=== PATIENT | male | born 1975 | race African-American/Black ===

== ENCOUNTER 2018-07-07 21:21 | Observation (INO) ==
[2018-07-07 22:29] LABS: INR 0.9; PT Patient Result 10.3 SECS; Partial Thromboplastin Time 29.3 SECS (0-40)
[2018-07-07 22:33] LABS: Basophils % 0.3 % (0.0-0.8); Eosinophils # 0.1 10*3/uL (0.0-0.87); Eosinophils % 1.7 % (0.00-10.9); Hematocrit 47.9 VOL% (42.0-52.0); Hemoglobin 15.3 GM/DL (14.0-18.0); Immature Granulocytes % 0.3 %; Immature Granulocytes Absolute 0.02 #; Lymphocytes # 3.6 10*3/uL (1.4-4.0); Lymphocytes % 48.6 % (21.2-54.2); Mean Corpuscular HGB Conc 31.9 GM/DL (32-36); Mean Corpuscular Hemoglobin 25 PG (27-34); Mean Corpuscular Volume 78.7 FL (87-102); Mean Platelet Volume 10.7 FL (9.6-12.0); Monocytes # 0.5 10*3/uL (0.11-0.8); Monocytes % 6.3 % (1.7-12.7); Neutrophils # 3.2 10*3/uL (1.4-7.4); Neutrophils % 42.8 % (38.7-73.9); Platelet Count 221 T/CUMM (130-400); Red Blood Count 6.09 MC/CUMM (3.8-5.5); Red Cell Distribution Width 14.4 % (9.3-17.3); White Blood Count 7.4 T/CUMM (4-12)
[2018-07-07 22:36] LABS: Alanine Aminotransferase 49 U/L (16-61); Albumin 3.6 G/DL (3.4-5.0); Alkaline Phosphatase 98 U/L (45-117); Aspartate Amino Transferase 30 U/L (0-37); Bilirubin,Total < 0.39 MG/DL (0.2-1.0); Blood Urea Nitrogen 14 MG/DL (7-18); Calcium 8.4 MG/DL (8.5-10.1); Glucose 117 MG/DL (74-106); Osmolality,Calculated 284.1 MOS/KG (273-304); Potassium 3.3 MMOL/L (3.5-5.1); Sodium 142 MMOL/L (136-145); Total Protein 7.1 G/DL (6.4-8.3)
[2018-07-07] MEDS ORDERED: ONDANSETRON 4 MG/2 ML VIAL IV STA (23:09)
[2018-07-07] MEDS ORDERED: ASPIRIN 325 MG TABLET PO STA (23:09)
[2018-07-07] MEDS ORDERED: MORPHINE 4 MG/1 ML VIAL IV STA (23:09)
[2018-07-07] MEDS ORDERED: NITROGLYCERIN 2% OINT 1 INCH/GM PACK TOP STA (23:09)
[2018-07-07] MEDS ORDERED: ONDANSETRON 4 MG/2 ML VIAL IV PRN (23:42)
[2018-07-07] MEDS ORDERED: MAGNESIUM SULF RIDER 2 GM in PREMIX 1 EACH IV PRN (23:42)
[2018-07-07] MEDS ORDERED: NICOTINE 21 MG/24 HR PATCH TRANSDERM PRN (23:42)
[2018-07-07] MEDS ORDERED: diphenhydrAMINE CAP 25 MG CAPSULE PO PRN (23:42)
[2018-07-07] MEDS ORDERED: ACETAMINOPHEN 325 MG TABLET PO PRN (23:42)
[2018-07-07] MEDS ORDERED: MAGNESIUM SULF RIDER 4 GM in PREMIX 1 EACH IV PRN (23:42)
[2018-07-08 00:13] LABS: Risk Ratio 6.34; Thyroid Stimulating Hormone 1.12 uIU/ml (0.358-3.74); VLDL CHOLESTEROL 87.4 MG/DL
[2018-07-08] MEDS: POTASSIUM CHLORIDE 20 MEQ TABLET PO PRN ×3 (01:26→08:44)
[2018-07-08 04:41] LABS: Apearance,Urine CLEAR (Clear); Bilirubin,Urine Negative (Negative); Blood, Urine Negative (Negative); Glucose,Urine (UA) Negative (Negative); Ketones,Urine Negative (Negative); Mucus,Urine Few /LPF (Occasional); Nitrite,Urine Negative (Negative); Protein,Urine Negative; RBC,Urine 2 /HPF (0-4); Squamous Epithelial Cell,Urine Occasional /HPF (0-10); Urine Color Yellow (Yellow); Urine Specific Gravity 1.027 (1.001-1.035); Urine Urobilinogen < 2.0 EU/DL (0.2-1.0); WBC,Urine 3 /HPF (0-6)
[2018-07-08 06:34] LABS: Troponin I < 0.015 NG/ML (0.00-0.045)
[2018-07-08] MEDS ORDERED: OMEGA 3 ACID ETHYL ESTERS 1 GM CAPSULE PO SCH (09:00)
[2018-07-08] MEDS ORDERED: PANTOPRAZOLE 40 MG TABLET PO SCH (09:00)
[2018-07-08] MEDS ORDERED: hydroCHLOROthiazide 25 MG TABLET PO SCH (09:00)
[2018-07-08] MEDS ORDERED: VALSARTAN 160 MG TABLET PO SCH (09:00)
[2018-07-08] MEDS ORDERED: ENOXAPARIN 40 MG/0.4 ML SYRINGE SUBCUT SCH (09:00)
[2018-07-08] MEDS ORDERED: KETOROLAC 30 MG/1 ML VIAL IV ONE (09:23)
[2018-07-08] MEDS ORDERED: GABAPENTIN 100 MG CAPSULE PO SCH (09:24)
[2018-07-08] MEDS ORDERED: ACETAMINOPHEN 325 MG TABLET PO SCH (09:30)
[2018-07-08] MEDS ORDERED: ASPIRIN EC 81 MG TABLET PO SCH (09:30)
[2018-07-08 12:41] VITALS: BP 115/61
[2018-07-08 14:24] LABS: Troponin I < 0.015 NG/ML (0.00-0.045)
[2018-07-08] MEDS ORDERED: ATORVASTATIN 80 MG TABLET PO SCH (21:00)
[2018-07-08] MEDS ORDERED: ATORVASTATIN 20 MG TABLET PO SCH (21:00)
== END 2018-07-08 15:08 | disposition home or self-care (01) ==
LOC: N.EDINP 21:21 → N.ED 21:21 → N.5E 07-08 00:55
PROVIDERS: ADMIT Hospitalist; ATTEND Hospitalist